=== PATIENT | female | born 1995 | race Caucasian/White ===

== ENCOUNTER 2021-03-21 13:14 | Emergency (ER) | payer OTHER ==
[2021-03-21] MEDS ORDERED: NAPROXEN500 MG PO (16:29)
== END 2021-03-21 16:41 | disposition home or self-care (01) ==
LOC: ER1 13:14
DX: S92.354A Nondisplaced fracture of fifth metatarsal bone, right foot, initial encounter for closed fracture (principal); W22.8XXA Striking against or struck by other objects, initial encounter
CPT/HCPCS: 73630; 99283